=== PATIENT | female | born 1965 | race African-American/Black ===

== ENCOUNTER 2025-06-28 20:05 | Emergency (ER) | payer MEDICAID ==
[~2025-06-28] VITALS: Ht 165.1 cm; Wt 59.0 kg
[2025-06-28 19:57] VITALS: TEMP 36.7; O2SAT 96
[2025-06-28 21:08] VITALS: BP 160/70; PULSE 71; RESP 13; O2SAT 96
[2025-06-28 21:09] LABS: BASOPHILS % 0.9 % (0.0-2.0); EOSINOPHILS % 2.8 % (0.0-5.0); HEMATOCRIT. 46.9 % (36.0-48.0); HEMOGLOBIN. 15.0 g/dL (12.0-16.0); LYMPHOCYTES % 48.7 % (20.0-50.0); MEAN PLATELET VOLUME 8.6 fl (7.4-10.4); MONOCYTES % 8.0 % (2.0-8.0); NEUTROPHILS % 39.6 % (40.0-76.0); PLATELET 237 x1000/uL (130-400); RED BLOOD CELL COUNT 5.28 mill/uL (4.2-5.4); RED CELL DISTRIBUTION WIDTH 13.8 % (11.6-14.6)
[2025-06-28] MEDS: MAGNESIUM HYDROXIDE 400MG/5ML 30ML UDC PO ONE (21:09)
[2025-06-28] MEDS: ONDANSETRON 4MG ODT PO ONE (21:09)
[2025-06-28] MEDS: BELLADONNA ALK/PHENOBARB 16.2MG/5ML ORAL SYR PO ONE (21:19)
[2025-06-28 21:20] LABS: CREATININE 1.0 mg/dL (0.6-1.0); TROPONIN I HIGH SENSITIVITY 4 ng/L (3.0-34); UREA NITROGEN BLOOD 8 mg/dL (9-23)
[2025-06-28 21:22] LABS: ASPARTATE AMINOTRANSFERASE 19 IU/L (<34); BILIRUBIN DIRECT 0.2 mg/dL (<=3.0); BILIRUBIN TOTAL 0.9 mg/dL (0.1-1.0); PROTEIN TOTAL 7.7 g/dL (6.0-8.3)
== END 2025-06-28 21:36 | disposition left against medical advice (07) ==
LOC: ER 20:05 → CMPBEDREQ 06-29 07:55
DX: R07.89 Other chest pain (principal); J45.909 Unspecified asthma, uncomplicated
CPT/HCPCS: 99285; 71045; 80076; 80048; 83690; 85025; 84484; 36415; 93005; Q0162